=== PATIENT | female | born 1930 | race Caucasian/White ===

== ENCOUNTER 2017-09-28 14:18 | Inpatient (IN) | payer MEDICARE, OTHER ==
[~2017-09-28] VITALS: Ht 162.6 cm; Wt 56.1 kg
[~2017-09-28 14:18] MED LIST: ASPIRIN 81M81 MG/TA2 PO; DOXYCYCLINE HY100 MG PO; IMDUR 30MG30 MG/TAB PO; NORVASC 5MG5 MG/TAB PO; PLAVIX 75MG TAB75 MG PO; PRINIVIL10 MG PO; TAMIFLU 75MG75 MG PO; TOPROL XL 25MG25 MG PO; TYLENOL 325MG325 MG PO; XOPENEX 1.1.25 MG/3 IH; ZOCOR 20MG20 MG PO
[2017-09-28 16:58] VITALS: BP 162/69; PULSE 83; TEMP 98.1
[2017-09-28 17:00] VITALS: BP 162/69; PULSE 83; TEMP 98.1
[2017-09-29 05:09] VITALS: BP 149/68; PULSE 84; TEMP 98.4
[2017-09-29 18:00] VITALS: BP 149/72; PULSE 67; TEMP 98.3
[2017-09-30 04:45] VITALS: BP 140/49; PULSE 58; TEMP 97.4
[2017-09-30 16:54] VITALS: BP 127/50; PULSE 75; TEMP 98.9
[2017-10-01 05:54] VITALS: BP 134/50; PULSE 61; TEMP 97.5
[2017-10-01] MEDS ORDERED: PROAIR HFA0.09 MG/AC IH (09:12)
[2017-10-01] MEDS ORDERED: IMDUR 30MG30 MG/TAB PO (09:15)
[2017-10-01 15:59] VITALS: BP 127/55; PULSE 74; TEMP 98.2
[2017-10-02 06:21] VITALS: BP 143/76; PULSE 65; TEMP 97.5
== END 2017-10-02 10:40 | disposition home health service (06) | DRG 948 ==
DX: R53.81 Other malaise (principal); E46 Unspecified protein-calorie malnutrition; J09.X3 Influenza due to identified novel influenza A virus with gastrointestinal manifestations; I10 Essential (primary) hypertension; I25.10 Atherosclerotic heart disease of native coronary artery without angina pectoris; I35.0 Nonrheumatic aortic (valve) stenosis; G25.0 Essential tremor; Z95.2 Presence of prosthetic heart valve; F32.89 Other specified depressive episodes; F43.21 Adjustment disorder with depressed mood
CPT/HCPCS: 99222-AI; 99232-AI; 99239; A9284; J1650